=== PATIENT | female | born 1945 | race Caucasian/White ===

== ENCOUNTER 2016-06-09 08:27 | Emergency (ER) | payer MEDICARE ==
[2016-06-09 09:24] LABS: ABSOLUTE EOSINOPHILS # (AUTO) 0.1 10^3/uL (0.0-0.6); ABSOLUTE MONOCYTES (AUTO) 0.8 10^3/uL (0.1-1.4); ABSOLUTE NEUT (AUTO) 5.4 10^3/uL (1.7-8.2); BASOPHILS % (AUTO) 0.5 % (0-2); EOSINOPHILS % (AUTO) 1.7 % (0-6); HEMATOCRIT 45.2 % (36.0-47.0); HEMOGLOBIN 14.9 g/dL (12.0-15.5); HGB HCT DIFFERENCE -0.5; LYMPHOCYTES % (AUTO) 13.5 % (13-45); MEAN CORPUSCULAR HEMOGLOBIN 28.7 pg (27.0-33.4); MEAN CORPUSCULAR HGB CONC 32.8 g/dL (32.0-36.0); MEAN CORPUSCULAR VOLUME 87 fl (80-97); MONOCYTES % (AUTO) 10.5 % (3-13); RED BLOOD COUNT 5.18 10^6/uL (3.72-5.28); RED CELL DISTRIBUTION WIDTH 14.1 % (11.5-14.0); SEGMENTED NEUTROPHILS % (AUTO) 73.8 % (42-78); WHITE BLOOD COUNT 7.4 10^3/uL (4.0-10.5)
[2016-06-09 09:53] LABS: APPEARANCE,URINE CLEAR; BILIRUBIN,URINE NEGATIVE (NEGATIVE); GLUCOSE, URINE NEGATIVE (NEGATIVE); KETONES,URINE NEGATIVE (NEGATIVE); LEUKOCYTE ESTERASE,URINE NEGATIVE (NEGATIVE); NITRITE,URINE NEGATIVE (NEGATIVE); PROTEIN,URINE NEGATIVE (NEGATIVE); URINE SPECIFIC GRAVITY 1.005; UROBILINOGEN,URINE NEGATIVE mg/dL (<2.0)
--- NOTE | 2016-06-09 10:15 | ER Document Report ---
ED General - General Chief Complaint: Abdominal Pain Stated Complaint: ABDOMINAL PAIN Mode of Arrival: Ambulatory Information source: Patient Notes: 70-year-old female presents with complaints of epigastric left upper quadrant right lower quadrant pain. Patient notes symptoms initially occurred a few weeks ago, and then had another episode this morning at 2 AM. Patient notes it was a sharp pain denies any cramping denies any fevers or chills. Patient notes currently she has no symptoms at all - HPI Onset: Just prior to arrival Onset/Duration: Sudden Quality of pain: Sharp Severity: Mild Pain Level: 2 Associated symptoms: Other Exacerbated by: Denies Relieved by: Denies Similar symptoms previously: Yes Recently seen / treated by doctor: Yes - seen by PCP, started on Nexium 40 mg, given GI follow-up - Related Data Allergies/Adverse Reactions: codeine [Codeine] Allergy (Verified 04/27/11 01:29) Penicillins Allergy (Verified 04/27/11 01:29) Sulfa (Sulfonamide Antibiotics) Allergy (Verified 04/27/11 01:29) Past Medical History - Social History Smoking Status: Never Smoker Cigarette use (# per day): No Chew tobacco use (# tins/day): No Smoking Education Provided: No Frequency of alcohol use: None Drug Abuse: None Family History: Reviewed & Not Pertinent - Past Medical History Cardiac Medical History: Reports: Hx Hypertension GI Medical History: Reports: Hx Gastroesophageal Reflux Disease Past Surgical History: Reports: Hx Cardiac Surgery - mitral valve repair, Hx Cholecystectomy, Hx Tonsillectomy - Immunizations Hx Diphtheria, Pertussis, Tetanus Vaccination: No Review of Systems - Review of Systems Notes: REVIEW OF SYSTEMS: CONSTITUTIONAL : Denies fever, chills, or sweats. Denies recent illness. EENT: Denies eye, ear, throat, or mouth pain or symptoms. Denies nasal or sinus congestion or discharge. Denies throat, tongue, or mouth swelling or difficulty swallowing. CARDIOVASCULAR: Denies chest pain. Denies palpitations or racing or irregular heart beat. Denies ankle edema. RESPIRATORY: Denies cough, cold, or chest congestion. Denies shortness of breath, difficulty breathing, or wheezing. GASTROINTESTINAL: Abdominal pain GENITOURINARY: Denies difficulty urinating, painful urination, burning, frequency, blood in urine, or discharge. FEMALE GENITOURINARY: Denies vaginal bleeding, heavy or abnormal periods, irregular periods. Denies vaginal discharge or odor. MUSCULOSKELETAL: Denies back or neck pain or stiffness. Denies joint pain or swelling. SKIN: Denies rash, lesions or sores. HEMATOLOGIC : Denies easy bruising or bleeding. LYMPHATIC: Denies swollen, enlarged glands. NEUROLOGICAL: Denies confusion or altered mental status. Denies passing out or loss of consciousness. Denies dizziness or lightheadedness. Denies headache. Denies weakness or paralysis or loss of use of either side. Denies problems with gait or speech. Denies sensory loss, numbness, or tingling. Denies seizures. PSYCHIATRIC: Denies anxiety or stress. Denies depression, suicidal ideation, or homicidal ideation. ALL OTHER SYSTEMS REVIEWED AND NEGATIVE. Dictation was performed using [employer] voice recognition software PHYSICAL EXAMINATION: GENERAL: Well-appearing, well-nourished and in no acute distress. HEAD: Atraumatic, normocephalic. EYES: Pupils equal round and reactive to light, extraocular movements intact, conjunctiva are normal. ENT: Nares patent, oropharynx clear without exudates. Moist mucous membranes. NECK: Normal range of motion, supple without lymphadenopathy LUNGS: Breath sounds clear to auscultation bilaterally and equal. No wheezes rales or rhonchi. HEART: Regular rate and rhythm without murmurs ABDOMEN: Soft, nontender, nondistended abdomen. No guarding, no rebound. No masses appreciated. Female : deferred Musculoskeletal: Normal range of motion, no pitting or edema. No cyanosis. NEUROLOGICAL: Cranial nerves grossly intact. Normal speech, normal gait. Normal sensory, motor exams PSYCH: Normal mood, normal affect. SKIN: Warm, Dry, normal turgor, no rashes or lesions noted. Physical Exam - Vital signs Vitals: Temp Pulse Resp BP Pulse Ox 97.9 F 74 16 158/84 H 98 06/09/16 08:39 06/09/16 08:39 06/09/16 08:39 06/09/16 08:39 06/09/16 08:39 Course - Re-evaluation Re-evalutation: 06/09/16 10:14 At this time patient has no symptoms, lab work pending but I expect no life- threatening issues 06/09/16 10:51 Lab work notes no obvious abnormality, patient will be given GI follow-up and has been given very strict return precautions regarding her abdominal pain After performing a Medical Screening Examination, I estimate there is LOW risk for ACUTE APPENDICITIS, BOWEL OBSTRUCTION, ACUTE CHOLECYSTITIS, PERFORATED DIVERTICULITIS, INCARCERATED HERNIA, PANCREATITIS, PELVIC INFLAMMATORY DISEASE, PERFORATED ULCER, ECTOPIC , or TUBO-OVARIAN ABSCESS, thus I consider the discharge disposition reasonable. Also, there is no evidence or peritonitis , sepsis, or toxicity. The patient and I have discussed the diagnosis and risks , and we agree with discharging home with close follow-up with the understanding that symptoms and presentations can change. We also discussed returning to the Emergency Department immediately if new or worsening symptoms occur. We have discussed the symptoms which are most concerning (e.g., bloody stool, fever, changing or worsening pain, vomiting) that necessitate immediate return. - Vital Signs Vital signs: Temp Pulse Resp BP Pulse Ox 97.9 F 74 16 158/84 H 98 06/09/16 08:41 06/09/16 08:41 06/09/16 08:41 06/09/16 08:41 06/09/16 08:41 - Laboratory Result Diagrams: 06/09/16 09:10 06/09/16 10:03 Laboratory results interpreted by me: 06/09/16 06/09/16 06/09/16 09:10 09:30 10:03 RDW 14.1 H Chloride 111 H Urine Blood SMALL H Discharge - Discharge Clinical Impression: Abdominal pain Qualifiers: Abdominal location: unspecified location Qualified Code(s): R10.9 - Unspecified abdominal pain Condition: Stable Disposition: HOME, SELF-CARE Instructions: Abdominal Pain ([facility]) Referrals: SARAH BARILLAS MD [ACTIVE STAFF] - Follow up as needed DIMAS RAMIREZ MD [ACTIVE STAFF] - Follow up as needed
[2016-06-09 10:28] LABS: ALANINE AMINOTRANSFERASE 35 U/L (9-52); ALBUMIN 3.9 g/dL (3.5-5.0); ALKALINE PHOSPHATASE 86 U/L (38-126); ANION GAP 12 (5-19); ASPARTATE AMINO TRANSFERASE 24 U/L (14-36); BILIRUBIN,DIRECT 0.2 mg/dL (0.0-0.4); BILIRUBIN,TOTAL 0.5 mg/dL (0.2-1.3); BLOOD UREA NITROGEN 12 mg/dL (7-20); CALCIUM 9.1 mg/dL (8.4-10.2); CARBON DIOXIDE 22 mmol/L (22-30); CHLORIDE 111 mmol/L (98-107); CREATININE RESULT 0.59 mg/dL (0.52-1.25); GLUCOSE 100 mg/dL (75-110); LIPASE 109.9 U/L (23-300); POTASSIUM 4.3 mmol/L (3.6-5.0); SODIUM 144.7 mmol/L (137-145); TOTAL PROTEIN 6.3 g/dL (6.3-8.2)
[2016-06-09 11:24] VITALS: BP 145/88
== END 2016-06-09 11:20 | disposition home or self-care (01) ==
LOC: ER 08:27
DX: R10.13 Epigastric pain (principal); R10.12 Left upper quadrant pain; R10.31 Right lower quadrant pain; I10 Essential (primary) hypertension; Z88.5 Allergy status to narcotic agent; Z88.0 Allergy status to penicillin; Z88.2 Allergy status to sulfonamides; Z87.19 Personal history of other diseases of the digestive system; Z90.49 Acquired absence of other specified parts of digestive tract; Z95.2 Presence of prosthetic heart valve
CPT/HCPCS: 36415; 80053; 81001; 83690; 85025; 99284

== ENCOUNTER 2016-09-12 01:54 | Emergency (ER) | payer MEDICARE ==
[2016-09-12] MEDS ORDERED: ASPIRIN 81 MG TABLET, CHEWABLE PO ONE (01:57)
[2016-09-12 02:38] LABS: ABSOLUTE BASOPHILS # (AUTO) 0.1 10^3/uL (0.0-0.2); ABSOLUTE EOSINOPHILS # (AUTO) 0.3 10^3/uL (0.0-0.6); ABSOLUTE LYMPHOCYTES (AUTO) 2.5 10^3/uL (0.5-4.7); ABSOLUTE MONOCYTES (AUTO) 0.5 10^3/uL (0.1-1.4); ABSOLUTE NEUT (AUTO) 5.3 10^3/uL (1.7-8.2); BASOPHILS % (AUTO) 1.1 % (0-2); EOSINOPHILS % (AUTO) 2.9 % (0-6); HEMATOCRIT 45.9 % (36.0-47.0); HEMOGLOBIN 14.5 g/dL (12.0-15.5); HGB HCT DIFFERENCE -2.4; LYMPHOCYTES % (AUTO) 29.2 % (13-45); MEAN CORPUSCULAR HEMOGLOBIN 28.5 pg (27.0-33.4); MEAN CORPUSCULAR HGB CONC 31.6 g/dL (32.0-36.0); MEAN CORPUSCULAR VOLUME 90 fl (80-97); MONOCYTES % (AUTO) 5.4 % (3-13); RED BLOOD COUNT 5.08 10^6/uL (3.72-5.28); RED CELL DISTRIBUTION WIDTH 14.1 % (11.5-14.0); SEGMENTED NEUTROPHILS % (AUTO) 61.4 % (42-78); WHITE BLOOD COUNT 8.7 10^3/uL (4.0-10.5)
[2016-09-12 02:49] LABS: ALANINE AMINOTRANSFERASE 35 U/L (9-52); ALBUMIN 4.2 g/dL (3.5-5.0); ALKALINE PHOSPHATASE 103 U/L (38-126); ANION GAP 12 (5-19); ASPARTATE AMINO TRANSFERASE 21 U/L (14-36); BILIRUBIN,DIRECT 0.3 mg/dL (0.0-0.4); BILIRUBIN,TOTAL 0.5 mg/dL (0.2-1.3); BLOOD UREA NITROGEN 19 mg/dL (7-20); CALCIUM 9.9 mg/dL (8.4-10.2); CARBON DIOXIDE 24 mmol/L (22-30); CHLORIDE 108 mmol/L (98-107); CREATINE KINASE 52 U/L (30-135); CREATININE RESULT 0.87 mg/dL (0.52-1.25); GLUCOSE 115 mg/dL (75-110); POTASSIUM 4.9 mmol/L (3.6-5.0)
[2016-09-12 03:02] LABS: TROPONIN I < 0.012 ng/mL
--- NOTE | 2016-09-12 03:09 | RADIOLOGY REPORT (SQ) ---
EXAM DESCRIPTION: CHEST SINGLE VIEW COMPLETED DATE/TIME: 09/12/2016 2:18 am REASON FOR STUDY: cp COMPARISON: Chest x-ray 09/27/2013. CT chest 09/28/2013. EXAM PARAMETERS: NUMBER OF VIEWS: One view. TECHNIQUE: Single frontal radiographic view of the chest acquired. RADIATION DOSE: NA LIMITATIONS: None. FINDINGS: LUNGS AND PLEURA: No consolidation, pneumothorax or pleural effusion. MEDIASTINUM AND HILAR STRUCTURES: No masses. Contour normal. HEART AND VASCULAR STRUCTURES: Heart normal in size. No overt vascular congestion. BONES: No acute findings. HARDWARE: There is a mitral valve prosthesis. IMPRESSION: No acute radiographic finding in the chest. TECHNICAL DOCUMENTATION: JOB ID: [id number]
--- NOTE | 2016-09-12 03:20 | ER Document Report ---
ED Cardiac - HPI Patient complains to provider of: Chest pain, Chest tightness. denies: Shortness of breath Associated symptoms: Other - see above <LETI RODRÍGUEZ - Last Filed: 09/12/16 03:37> <LEWIS RAMIREZ - Last Filed: 09/12/16 05:20> - General Chief Complaint: Chest Pain Stated Complaint: CHEST PAIN Time Seen by Provider: 09/12/16 03:08 Notes: Patient is a 71 year old female who presents to the ED via EMS with complaints of sudden onset chest pain with onset around 0100 this morning. Patient states she was initially nauseous and states she just didn't "feel right". Patient has a history of hypertension and states she checked her blood pressure and it was 186/112. Patient states she has tightness in her chest and the pain is in the right side of her chest. Patient describes part of her symptoms as a burning sensation. Patient states she also experienced numbness in her right arm. Patient was given 4 baby aspirin and Nitro via EMS and states the discomfort improved, pain is gone but she still feels the tightness and nausea intermittently. Patient had a Mitral valve repaired 6 years ago in [place]. Patient had a heart cath, echo, and stress test done prior to the repair. Patient denies a history of MIs or having any stents. Patient denies any diaphoresis or sob. Patient states intermittently for the past few weeks she has also been experiencing lightheadedness and feeling weak on occasion but denies any stroke like symptoms. Patient has done a lot of traveling recently but denies a history of PE or DVT. Patient has a history of a Left Bundle Branch Block. (LETI RODRÍGUEZ) - Related Data Allergies/Adverse Reactions: codeine [Codeine] Allergy (Verified 04/27/11 01:29) Penicillins Allergy (Verified 04/27/11 01:29) Sulfa (Sulfonamide Antibiotics) Allergy (Verified 04/27/11 01:29) Past Medical History - Social History Smoking Status: Never Smoker Drug Abuse: None Family History: Reviewed & Not Pertinent - Past Medical History Cardiac Medical History: Reports: Hx Hypertension, Other - mitral vavle repair Denies: Hx DVT, Hx Heart Attack GI Medical History: Reports: Hx Gastroesophageal Reflux Disease Past Surgical History: Reports: Hx Cardiac Surgery - mitral valve repair, Hx Cholecystectomy, Hx Tonsillectomy - Immunizations Hx Diphtheria, Pertussis, Tetanus Vaccination: No <ALFRED RODRÍGUEZANDRA - Last Filed: 09/12/16 03:37> Review of Systems - Review of Systems Constitutional: See HPI, Diaphoresis, Weakness EENT: See HPI. denies: Blurred vision, Double vision Cardiovascular: See HPI, Chest pain, Lightheaded Respiratory: See HPI. denies: Short of breath Gastrointestinal: See HPI, Nausea Genitourinary: No symptoms reported Female Genitourinary: No symptoms reported Musculoskeletal: No symptoms reported Skin: No symptoms reported Hematologic/Lymphatic: No symptoms reported Neurological/Psychological: See HPI, Weakness, Numbness - in right arm <MARCOSLETI - Last Filed: 09/12/16 03:37> Physical Exam - General General appearance: Appears well, Alert In distress: None - HEENT Head: Normocephalic, Atraumatic Eyes: Normal Extraocular movements intact: Yes Pupils: PERRL - Respiratory Respiratory status: No respiratory distress Breath sounds: Normal - Cardiovascular Rhythm: Regular Heart sounds: Normal auscultation Murmur: No - Abdominal Inspection: Normal Distension: No distension Tenderness: Nontender - Back Back: Normal - Extremities General upper extremity: Normal inspection, Normal ROM General lower extremity: Normal inspection, Normal ROM - Neurological Neuro grossly intact: Yes Cognition: Normal Orientation: AAOx4 [place] Coma Scale Eye Opening: Spontaneous [place] Coma Scale Verbal: Oriented [place] Coma Scale Motor: Obeys Commands [place] Coma Scale Total: 15 Speech: Normal Motor strength normal: LUE, RUE, LLE, RLE Sensory: Normal - Psychological Associated symptoms: Normal affect, Normal mood - Skin Skin Temperature: Warm Skin Moisture: Dry Skin Color: Normal <MARCOSLETI - Last Filed: 09/12/16 03:37> Course - Laboratory Result Diagrams: 09/12/16 02:25 09/12/16 02:25 <LETI RODRÍGUEZ - Last Filed: 09/12/16 03:37> - Laboratory Result Diagrams: 09/12/16 02:25 09/12/16 02:25 <LEWIS RAMIREZ - Last Filed: 09/12/16 05:20> - Re-evaluation Re-evalutation: [id number] 09/12/16 Reassessed at bedside says GI cocktail relieved her discomfort she has a significant amount of gas and feels like she has the flu. She denies any ongoing chest pain or shortness of breath has a stable EKG and negative initial cardiac enzymes. Going to redo a second set of cardiac enzymes on her. (LEWIS RAMIREZ) - Vital Signs Vital signs: Temp Pulse Resp BP Pulse Ox 97.2 F 16 153/90 H 97 09/12/16 01:57 09/12/16 05:05 09/12/16 05:05 09/12/16 05:05 - Laboratory Laboratory results interpreted by me: 09/12/16 09/12/16 02:25 02:25 MCHC 31.6 L RDW 14.1 H Chloride 108 H Glucose 115 H Scribe Documentation - Scribe Written by Arcadio:: arcadio Ayala, 09/12/2016, 0342 acting as scribe for :: Sean <LETI RODRÍGUEZ - Last Filed: 09/12/16 03:37>
[2016-09-12] MEDS ORDERED: LIDOCAINE 2% VISCOUS SOLN 20 ML UDCUP PO ONE (03:34)
[2016-09-12] MEDS ORDERED: METOCLOPRAMIDE HCL ORAL SOLN 10 MG/10 ML UDCUP PO ONE (03:34)
[2016-09-12] MEDS ORDERED: MAG HYDROX/AL HYDROX/SIMETH SUSP 30 ML UDCUP PO ONE (03:34)
[2016-09-12] MEDS ORDERED: ONDANSETRON 4 MG TAB.RAPDIS PO ONE (05:50)
--- NOTE | 2016-09-12 05:55 | ER Document Report ---
Doctor's Note Notes: 09/12/16 05:53 Patient was waking from sleep at 1 AM this morning with sudden onset of nausea tightness in her chest and right-sided burning that went into her right arm. She took nitro and aspirin per EMS and it resolved. Had a lot of problems recently being taken off Nexium have an upper GI scope last month with a history of Amira fundoplication and chronic gas. Denies any recent history of travel surgery immobilization DVT or pulmonary emboli no shortness of breath diaphoresis patient has a known left bundle branch block according to her. She sees Dr. Parth Garcia cardiology no history of PA and stents last heart cath was 6 years ago 6 years ago in [place] she had a mitral valve repair. She takes medicine for high blood pressure but is not diabetic hyperlipidemic does not smoke and has no significant family history of heart disease. On ED arrival she is awake alert blood pressure is stable she is not tachypneic or tachycardic EKG showed left bundle branch block which is consistent which she states she is been evaluated for the past. Initial chest x-ray cardiac enzymes are negative reassess she developed colonic gas I have given her a GI cocktail which she said resolved the discomfort no recurrence of chest pain or difficulty breathing. They have a second set of enzymes ordered at 0 557.
--- NOTE | 2016-09-12 06:06 | ER Document Report ---
Doctor's Note Notes: 09/12/16 06:06 Patient is pending a second set of cardiac enzymes and is signed out to Dr. Elia le to follow-up on the enzymes reassess and disposition the patient that I have written discharge instructions for if everything is normal. EKG 1 shows sinus with left bundle branch block repeat EKG sinus at 62 left bundle branch block
[2016-09-12 07:23] VITALS: BP 154/83
--- NOTE | 2016-09-12 08:13 | EKG REPORT ---
SEVERITY:- ABNORMAL ECG - SINUS RHYTHM LEFT BUNDLE BRANCH BLOCK : Confirmed by: Aayush Leong MD 12-Sep-2016 08:12:46
--- NOTE | 2016-09-12 08:13 | EKG REPORT ---
SEVERITY:- ABNORMAL ECG - SINUS RHYTHM LEFT BUNDLE BRANCH BLOCK : Confirmed by: Aayush Leong MD 12-Sep-2016 08:12:56
== END 2016-09-12 08:01 | disposition home or self-care (01) ==
LOC: ER 01:54
DX: R07.9 Chest pain, unspecified (principal); R42 Dizziness and giddiness; R53.1 Weakness
CPT/HCPCS: 93005; 99285; 36415; 82553; 82550; 85025; 80053; 84484; 71010; 93010; J3490; A9270